=== PATIENT | female | born 1965 ===

== ENCOUNTER 2020-05-25 20:36 | Emergency (ER) | payer BC, OTHER ==
[2020-05-25] MEDS ORDERED: Rocuronium 100 MG/10 ML MDV IV ONE (20:37)
[2020-05-25] MEDS ORDERED: Sodium Chloride 0.9% 2,500 ML IV ONE (21:28)
[2020-05-25] MEDS ORDERED: Sodium Chloride 0.9% 10 ML Syringe FLUSH PRN (21:28)
[2020-05-25] MEDS ORDERED: Sodium Chloride 0.9% 2.5 ML Syringe FLUSH PRN (21:28)
[2020-05-25] MEDS ORDERED: Dexamethasone 10 MG/ML SDV IVPUSH ONE (21:28)
[2020-05-25] MEDS ORDERED: cefTRIAXone 1 GM in Sodium Chloride 0.9% 100 ML IV ONE (21:28)
[2020-05-25 21:54] LABS: BLOOD UREA NITROGEN,BUN 15 mg/dL (7.0-18.0); CARBON DIOXIDE,CO2 24.3 mmol/L (21.0-32.0); CHLORIDE,CL 101 mmol/L (98-107); GLUCOSE RANDOM 137 mg/dL (74-106); POTASSIUM,K 3.7 mmol/L (3.5-5.1); SODIUM,NA 137 mmol/L (136-145)
[2020-05-25] MEDS ORDERED: Ketamine 500 mg/10 ML MDV ONE (21:54)
[2020-05-25] MEDS ORDERED: propofoL 0 ML ONE (21:54)
[2020-05-25] MEDS ORDERED: fentaNYL 100 MCG/2 ML SDV ONE (21:54)
--- NOTE | 2020-05-25 22:14 | CR ---
Chest: Portable view of the chest was obtained. Comparison: Prior chest x-ray of 02/27/19. Diffuse increased density throughout both sides of the chest is an interval change from prior exam. Heart size and mediastinum are normal. Bony structures are grossly intact. Impression: 1. Diffuse increased density within both sides of chest which is an interval change from prior study. Findings have the appearance of viral pneumonia, please correlate with patient's Covid status. Diagnostic code #5 This report was dictated in MDT
--- NOTE | 2020-05-25 23:04 | EDM.PDOC ---
ED [facility] GENERAL MEDICAL PROBLEM - General Chief Complaint: Respiratory Problem Stated Complaint: COVID Time Seen by Provider: 05/25/20 21:09 - History of Present Illness INITIAL COMMENTS - FREE TEXT/NARRATIVE: HISTORY AND PHYSICAL: History of present illness: This 55-year-old female with a past medical history of hypertension that improved and was no longer being treated secondary to weight loss however the patient is concerned she may have a gained back her weight, BMI greater than 30, presents to the emergency department complaining of shortness of breath. She presents with oxygen saturation in the 50s with tachypnea and cyanosis along with livedo reticularis. She was immediately brought to the resuscitation bed were interviewed her and she had tachypnea and clip speech. She states that she has known COVID positive and was treated with 50 mg of prednisone at home for 5 days. She rates her symptoms as moderate to severe. Initially she was slightly hypoxemic and had mild altered mental status with some confusion however that cleared with oxygenation. Review of systems: A 10-point review of systems, other than pertinent positives and negatives as stated per HPI, is otherwise negative. Past medical history: As per history of present illness and as reviewed below otherwise noncontributory. Surgical history: As per history of present illness and as reviewed below otherwise noncontributory. Social history: No reported history of drug or alcohol abuse. Family history: As per history of present illness and as reviewed below otherwise noncontributory. Physical exam: VITAL SIGNS: Reviewed. GENERAL: Presents in severe distress with oxygen saturation in the 50s, cyanosis, livedo reticularis, and tachycardia along with tachypnea and accessory muscle use. HEAD: No signs of head trauma. EYES: Pupils are equal. Extraocular motions intact. EARS: Hearing grossly intact. MOUTH: Oropharynx is dry. No other lesions noted. NECK: No adenopathy, no JVD. CHEST: Clear to auscultation bilaterally, no audible adventitious breath sounds, tachypnea and accessory muscle use is present. She is tachypneic in the 30s to 40s. CARDIAC: Tachycardia is present. Regular rhythm. S1-S2 are present. No murmur appreciated. VASCULAR: Livedo reticularis in the lower extremities. Delayed capillary refill in all 4 extremities. Cyanosis in the perioral area is present. ABDOMEN: Soft, without detectable tenderness. No sign of distention. No rebound or guarding, and no masses palpated. MUSCULOSKELETAL: Good range of motion of all major joints. Extremities without clubbing, cyanosis or edema. NEUROLOGIC EXAM: Alert and oriented x 3. No focal sensory or motor deficits. Speech normal. Follows commands. PSYCHIATRIC: Mood normal. SKIN: Livedo reticularis and cyanosis is present. Mildly capillary refill. Initial Differential Diagnosis & Plan: Shortness of breath: Differential diagnosis includes asthma, COPD, pneumonia, congestive heart failure, anemia, thyroid disease, acidosis, pulmonary embolism, myocardial infarction, sepsis. Most likely bilateral COVID pneumonia. I will begin resuscitation and have activated code sepsis. Definitive disposition and diagnosis as appropriate pending reevaluation and review of above. head Pain Score (Numeric/FACES): 8 - Related Data Allergies Allergy/AdvReac Type Severity Reaction Status Date / Time calcium Allergy Shaking Verified 05/25/20 21:04 indomethacin [From Indocin] Allergy Tachycardia Verified 05/25/20 21:04 indomethacin sodium Allergy Tachycardia Verified 05/25/20 21:04 [From Indocin] naproxen [From Naprosyn] Allergy Tachycardia Verified 05/25/20 21:04 triazolam [From Halcion] Allergy Tachycardia Verified 05/25/20 21:04 Home Meds: Home Meds Acyclovir 400 mg PO TID PRN 01/15/19 [History] Albuterol Sulfate 2.5 mg NEB Q4H PRN 01/15/19 [History] Albuterol [Ventolin HFA] 2 puff INH Q4H PRN 01/15/19 [History] Albuterol/Ipratropium [Combivent Respimat] 2 puff INH QID PRN 01/15/19 [History] Benzonatate 100 mg PO TID PRN 01/15/19 [History] Budesonide/Formoterol [Symbicort 160-4.5 MCG] 2 puff INH BID 01/15/19 [History] Cyclobenzaprine [Flexeril] 10 mg PO TID PRN 01/15/19 [History] Fluticasone Propionate [Flonase Allergy Relief] 1 spray NASBOTH BID 01/15/19 [History] Montelukast Sodium 10 mg PO BEDTIME 01/15/19 [History] Omeprazole 20 mg PO QAM PRN 01/15/19 [History] traMADol HCl [Tramadol HCl] 50 - 100 mg PO Q4H PRN 01/15/19 [History] lidocaine HCL [Aspercreme Lidocaine] 1 dose TOP ASDIRECTED PRN 06/27/19 [History] Past Medical History HEENT History: Reports: Other (See Below) Other HEENT History: wears glasses Cardiovascular History: Reports: Other (See Below) Other Cardiovascular History: HTN in the past Respiratory History: Reports: Asthma Other Respiratory History: uses several inhalers/nebulizers as needed Gastrointestinal History: Reports: GERD Other Gastrointestinal History: acid reflux Genitourinary History: Reports: None [employer] History: Reports: Musculoskeletal History: Reports: Fracture Other Musculoskeletal History: hx of fx left clavicle, finger and toe Neurological History: Reports: None Psychiatric History: Reports: None Endocrine/Metabolic History: Reports: None Hematologic History: Reports: None Immunologic History: Reports: None Oncologic (Cancer) History: Reports: None Dermatologic History: Reports: Psoriasis, Other (See Below) Other Dermatologic History: mild psoriasis - Infectious Disease History Infectious Disease History: Reports: Novel Coronavirus, Rubella - Past Surgical History Head Surgeries/Procedures: Reports: None HEENT Surgical History: Reports: Eye Surgery Other HEENT Surgeries/Procedures: bilateral eye muscle surgery as a child Cardiovascular Surgical History: Reports: None Respiratory Surgical History: Reports: None GI Surgical History: Reports: None Female Surgical History: Reports: Breast Biopsy Other Female Surgeries/Procedures: had "milk ducts" removed from left breast due to bleeding while nursing Endocrine Surgical History: Reports: None Neurological Surgical History: Reports: Spinal Fusion Musculoskeletal Surgical History: Reports: Other (See Below) Other Musculoskeletal Surgeries/Procedures:: benign tumor removed from left side of back, bunionectomy-rt foot Oncologic Surgical History: Reports: None Dermatological Surgical History: Reports: None Social & Family History - Family History Family Medical History: Noncontributory - Tobacco Use Smoking Status *Q: Never Smoker - Caffeine Use Caffeine Use: Reports: Coffee, Soda - Recreational Drug Use Recreational Drug Use: No ED ROS GENERAL - Review of Systems Review Of Systems: See Below (noted) Reason Not Obtained: noted ED EXAM, GENERAL - Physical Exam Exam: See Below (noted) ED RESPIRATORY PROCEDURES - Additional/Other Procedure(s) Other (Free Text) Procedure(s): Critical Care Note: The patient presented in critical status due to bilateral COVID pneumonia with acute respiratory failure and sepsis requiring ventilatory support IV antibiotics. The patient required rapid exam, decision making, and frequent re-evaluations during their time in the Emergency Department. Total Critical Care time exclusive of all other billable procedure time provided by myself 107 minutes EKG INTERPRETATION EKG Interpretation Comments: 12 lead EKG interpretation Obtained: May 25, 2020 at 2115 Rhythm: Sinus tachycardia Rate: 118 [place]in: Normal Intervals: Prolonged QT interval at [address]/T Segments: No acute ischemic changes Interpretation: Sinus tachycardia with prolonged QT interval Course - Vital Signs Last Recorded V/S: Last Vital Signs Temp 99.4 F 05/25/20 20:53 Pulse 113 H 05/25/20 22:22 Resp 34 H 05/25/20 22:22 BP 130/61 05/25/20 22:22 Pulse Ox 91 L 05/25/20 22:22 - Orders/Labs/Meds Orders: Active Orders 24 hr Category Date Time Status Blood Pressure Mgt: Sepsis [RC] Q15MX2 Care 05/25/20 21:29 Active EKG Documentation Completion [RC] STAT Care 05/25/20 21:28 Active CULTURE BLOOD [BC] Stat Lab 05/25/20 21:10 Received CULTURE BLOOD [BC] Stat Lab 05/25/20 21:35 Received UA W/MICROSCOPIC [URIN] Stat Lab 05/25/20 21:29 Ordered Sodium Chloride 0.9% [Saline Flush] Med 05/25/20 21:28 Active 10 ml FLUSH ASDIRECTED PRN Sodium Chloride 0.9% [Saline Flush] Med 05/25/20 21:28 Active 2.5 ml FLUSH ASDIRECTED PRN Blood Culture x2 Reflex Set [OM.PC] Stat Oth 05/25/20 21:29 Ordered Saline Lock Insert [OM.PC] Stat Oth 05/25/20 21:29 Ordered Severe Sepsis Onset Time [OM.PC] Stat Oth 05/25/20 21:29 Ordered Medication Orders Sodium Chloride (Saline Flush) 10 ml FLUSH ASDIRECTED PRN PRN Reason: Keep Vein Open Sodium Chloride (Saline Flush) 2.5 ml FLUSH ASDIRECTED PRN PRN Reason: Keep Vein Open Labs: Laboratory Tests 05/25/20 05/25/20 05/25/20 Range/Units 21:10 21:10 21:10 WBC 10.15 (4.0-11.0) K/uL RBC 5.08 (4.30-5.90) M/uL Hgb 15.1 (12.0-16.0) g/dL Hct 45.4 (36.0-46.0) % MCV 89.4 (80.0-98.0) fL MCH 29.7 (27.0-32.0) pg MCHC 33.3 (31.0-37.0) g/dL RDW Std Deviation 42.0 (28.0-62.0) fl RDW Coeff of Kathya 13 (11.0-15.0) % Plt Count 275 (150-400) K/uL MPV 10.70 (7.40-12.00) fL Neut % (Auto) 87.3 H (48.0-80.0) % Lymph % (Auto) 7.9 L (16.0-40.0) % Allen % (Auto) 4.7 (0.0-15.0) % Eos % (Auto) 0.0 (0.0-7.0) % Baso % (Auto) 0.1 (0.0-1.5) % Neut # (Auto) 8.9 H (1.4-5.7) K/uL Lymph # (Auto) 0.8 (0.6-2.4) K/uL Allen # (Auto) 0.5 (0.0-0.8) K/uL Eos # (Auto) 0.0 (0.0-0.7) K/uL Baso # (Auto) 0.0 (0.0-0.1) K/uL Nucleated RBC % 0.0 /100WBC Nucleated RBCs # 0 K/uL INR 1.07 APTT 25.8 (18.6-31.3) SEC ABG pH (7.35-7.45) ABG pCO2 (35-45) mmHG ABG pO2 (75-100) mmHG ABG HCO3 (22-26) mEq/L ABG Total CO2 ABG Base Excess (-2.0-2.0) Lactate (0.20-2.00) mmol/L Sodium 137 (136-145) mmol/L Potassium 3.7 (3.5-5.1) mmol/L Chloride 101 (98-107) mmol/L Carbon Dioxide 24.3 (21.0-32.0) mmol/L BUN 15 (7.0-18.0) mg/dL Creatinine 1.0 (0.6-1.0) mg/dL Est Cr Clr Drug Dosing 51.96 mL/min Estimated GFR (MDRD) 57.4 ml/min Glucose 137 H (74-106) mg/dL Calcium 8.3 L (8.5-10.1) mg/dL Total Bilirubin 0.7 (0.2-1.0) mg/dL AST 58 H (15-37) IU/L ALT 65 H (14-63) IU/L Alkaline Phosphatase 145 H (46-116) U/L Troponin I < 0.050 (0.000-0.056) ng/mL C-Reactive Protein 17.30 H (0.00-0.90) mg/dL Total Protein 7.4 (6.4-8.2) g/dL Albumin 2.9 L (3.4-5.0) g/dL Globulin 4.5 H (2.6-4.0) g/dL Albumin/Globulin Ratio 0.6 L (0.9-1.6) 05/25/20 05/25/20 Range/Units 21:10 21:20 WBC (4.0-11.0) K/uL RBC (4.30-5.90) M/uL Hgb (12.0-16.0) g/dL Hct (36.0-46.0) % MCV (80.0-98.0) fL MCH (27.0-32.0) pg MCHC (31.0-37.0) g/dL RDW Std Deviation (28.0-62.0) fl RDW Coeff of Kathya (11.0-15.0) % Plt Count (150-400) K/uL MPV (7.40-12.00) fL Neut % (Auto) (48.0-80.0) % Lymph % (Auto) (16.0-40.0) % Allen % (Auto) (0.0-15.0) % Eos % (Auto) (0.0-7.0) % Baso % (Auto) (0.0-1.5) % Neut # (Auto) (1.4-5.7) K/uL Lymph # (Auto) (0.6-2.4) K/uL Allen # (Auto) (0.0-0.8) K/uL Eos # (Auto) (0.0-0.7) K/uL Baso # (Auto) (0.0-0.1) K/uL Nucleated RBC % /100WBC Nucleated RBCs # K/uL INR APTT (18.6-31.3) SEC ABG pH 7.514 H (7.35-7.45) ABG pCO2 30 L (35-45) mmHG ABG pO2 59 L (75-100) mmHG ABG HCO3 24 (22-26) mEq/L ABG Total CO2 20.8 ABG Base Excess 1.9 (-2.0-2.0) Lactate 2.1 H* (0.20-2.00) mmol/L Sodium (136-145) mmol/L Potassium (3.5-5.1) mmol/L Chloride (98-107) mmol/L Carbon Dioxide (21.0-32.0) mmol/L BUN (7.0-18.0) mg/dL Creatinine (0.6-1.0) mg/dL Est Cr Clr Drug Dosing mL/min Estimated GFR (MDRD) ml/min Glucose (74-106) mg/dL Calcium (8.5-10.1) mg/dL Total Bilirubin (0.2-1.0) mg/dL AST (15-37) IU/L ALT (14-63) IU/L Alkaline Phosphatase (46-116) U/L Troponin I (0.000-0.056) ng/mL C-Reactive Protein (0.00-0.90) mg/dL Total Protein (6.4-8.2) g/dL Albumin (3.4-5.0) g/dL Globulin (2.6-4.0) g/dL Albumin/Globulin Ratio (0.9-1.6) Meds: Medications Generic Name Dose Route Start Last Admin Trade Name Freq PRN Reason Stop Dose Admin Sodium Chloride 10 ml 05/25/20 21:28 Saline Flush FLUSH ASDIRECTED PRN Keep Vein Open Sodium Chloride 2.5 ml 05/25/20 21:28 Saline Flush FLUSH ASDIRECTED PRN Keep Vein Open Discontinued Medications Generic Name Dose Route Start Last Admin Trade Name Li PRN Reason Stop Dose Admin Dexamethasone 10 mg 05/25/20 21:28 05/25/20 22:15 Dexamethasone IVPUSH 05/25/20 21:29 10 mg ONETIME ONE Administration Fentanyl Confirm 05/25/20 21:54 Sublimaze Administered 05/25/20 21:55 Dose 100 mcg .ROUTE .STK-MED ONE Ceftriaxone Sodium 1 gm/ 100 mls @ 200 mls/hr 05/25/20 21:28 05/25/20 22:15 Sodium Chloride IV 05/25/20 21:57 200 mls/hr STAT ONE Administration Sodium Chloride 2,500 mls @ 2,500 mls/hr 05/25/20 21:28 05/25/20 22:05 Normal Saline IV 05/25/20 22:27 2,500 mls/hr BOLUS ONE Administration Protocol Ceftriaxone Sodium/Dextrose Confirm 05/25/20 21:42 Rocephin In Dextrose,Iso-Osm 1 Gm/50 Ml Administered 05/25/20 21:43 Dose 50 mls @ as directed .ROUTE .STK-MED ONE Propofol Confirm 05/25/20 21:54 Diprivan 100 Ml Administered 05/25/20 21:55 Dose 100 mls @ as directed .ROUTE .STK-MED ONE Ketamine HCl Confirm 05/25/20 21:54 Ketalar Administered 05/25/20 21:55 Dose 500 mg .ROUTE .STK-MED ONE - Re-Assessments/Exams Free Text/Narrative Re-Assessment/Exam: 05/25/20 23:04 Sepsis reevaluation note After IV fluids have finished I have completed a sepsis reassess/reevaluation. Patient is improved and is not hypotensive. Currently on BiPAP. Free Text/Narrative Re-Assessment/Exam: 05/25/20 23:05 Patient presents and has bilateral COVID pneumonia with acute respiratory failure. I spoke to the accepting pulmonary critical care doctor, Dr. Spicer, and we discussed the best management for the patient for transfer. We found that the patient could be transported with BiPAP in route. I am concerned that she has a failing respiratory effort and we did discuss empiric/early intubation prior to transfer and that excepting pulmonary critical care physician strongly discouraged this. The patient is responded well to bilevel ventilation in the emergency department and other interventions. I am concerned because she still is tachypneic in the high 30s to low 40s. Her oxygen saturation has improved and is in the mid 90s. Given these findings we will transfer her to [facility] via air ambulance. My diagnostic impression: 1. Bilateral COVID pneumonia 2. Acute respiratory failure requiring ventilatory support 3. Mild COVID hepatitis not greater than 5 times a high end of normal 4. Lactic acidosis likely secondary to acute respiratory failure 5. Severe sepsis with endorgan dysfunction likely secondary to COVID pneumonia and hypoxemia 6. Lymphopenia 7. Respiratory alkalosis 8. Elevated CRP 9. Hyperglycemia Departure - Departure Time of Disposition: 23:10 Disposition: DC/Tfer to [facility] 02 Clinical Impression: COVID-19 - Discharge Information *PRESCRIPTION DRUG MONITORING PROGRAM REVIEWED*: Not Applicable *COPY OF PRESCRIPTION DRUG MONITORING REPORT IN PATIENT TRIXIE: Not Applicable Referrals: Miguel Angel Anderson MD [Primary Care Provider] - Sepsis Event Note (ED) - Evaluation Sepsis Screening Result: No Definite Risk - Focused Exam Vital Signs: Vital Signs Temp Pulse Resp BP Pulse Ox 05/25/20 22:22 113 H 34 H 130/61 91 L 05/25/20 22:04 118 H 19 124/67 91 L 05/25/20 21:21 122 H 34 H 138/83 95 05/25/20 20:53 99.4 F 116 H 36 H 130/66 57 L - My Orders Last 24 Hours: My Active Orders 05/25/20 21:10 CULTURE BLOOD [BC] Stat 05/25/20 21:28 EKG Documentation Completion [RC] STAT Sodium Chloride 0.9% [Saline Flush] 10 ml FLUSH ASDIRECTED PRN Sodium Chloride 0.9% [Saline Flush] 2.5 ml FLUSH ASDIRECTED PRN 05/25/20 21:29 Blood Pressure Mgt: Sepsis [RC] Q15MX2 UA W/MICROSCOPIC [URIN] Stat Blood Culture x2 Reflex Set [OM.PC] Stat Saline Lock Insert [OM.PC] Stat Severe Sepsis Onset Time [OM.PC] Stat 05/25/20 21:35 CULTURE BLOOD [BC] Stat - Assessment/Plan Last 24 Hours: My Active Orders 05/25/20 21:10 CULTURE BLOOD [BC] Stat 05/25/20 21:28 EKG Documentation Completion [RC] STAT Sodium Chloride 0.9% [Saline Flush] 10 ml FLUSH ASDIRECTED PRN Sodium Chloride 0.9% [Saline Flush] 2.5 ml FLUSH ASDIRECTED PRN 05/25/20 21:29 Blood Pressure Mgt: Sepsis [RC] Q15MX2 UA W/MICROSCOPIC [URIN] Stat Blood Culture x2 Reflex Set [OM.PC] Stat Saline Lock Insert [OM.PC] Stat Severe Sepsis Onset Time [OM.PC] Stat 05/25/20 21:35 CULTURE BLOOD [BC] Stat
[2020-05-25] MEDS ORDERED: Azithromycin 500 MG in Sodium Chloride 0.9% 250 ML IV SCH (23:30)
[2020-05-26 03:27] VITALS: BP 153/67; PULSE 108
== END 2020-05-25 23:50 ==
LOC: MW.ED 20:36
DX: U07.1 COVID-19 (principal); J12.89 Other viral pneumonia; J96.00 Acute respiratory failure, unspecified whether with hypoxia or hypercapnia; D72.810 Lymphocytopenia; E87.3 Alkalosis; R73.9 Hyperglycemia, unspecified; R00.0 Tachycardia, unspecified; I10 Essential (primary) hypertension; K21.9 Gastro-esophageal reflux disease without esophagitis; J45.909 Unspecified asthma, uncomplicated; Z88.8 Allergy status to other drugs, medicaments and biological substances; Z88.1 Allergy status to other antibiotic agents; Z79.899 Other long term (current) drug therapy
CPT/HCPCS: 36415; 36600; 71045; 80053; 81001; 82803; 83605; 84484; 85025; 85610; 85730; 86140; 87040; 93005; 94660; 96361; 96365; 96367; 96375; 99291; 99292; J0456; J0696; J1100; J2704; J3010; J7030; J7050

== ENCOUNTER 2021-10-24 13:05 | Emergency (ER) | payer BC ==
[2021-10-24 16:08] VITALS: BP 135/88; PULSE 88
== END 2021-10-24 16:07 | disposition home or self-care (01) ==
LOC: MW.ED 13:05
DX: S99.921A Unspecified injury of right foot, initial encounter (principal); S99.911A Unspecified injury of right ankle, initial encounter; I10 Essential (primary) hypertension; Z88.6 Allergy status to analgesic agent; Z79.899 Other long term (current) drug therapy; W22.8XXA Striking against or struck by other objects, initial encounter; Y93.01 Activity, walking, marching and hiking
CPT/HCPCS: 73610-26-RT; 73610-RT; 73620-26-RT; 73620-RT; 99283